=== PATIENT | female | born 1945 | race Caucasian/White ===

== ENCOUNTER 2018-03-13 14:33 | Inpatient (IN) | payer OTHER, MEDICAID ==
[~2018-03-13] VITALS: Ht 160 cm; Wt 77.2 kg
[~2018-03-13 14:33] MED LIST: AMLO5TAB2 PO; CELE200C PO; FAMO20TA7 PO; METO25TA35 PO; OMEP20CA14 PO; QUET100T PO; QUET300T PO; QUET400T PO; SIMV20TA3 PO; TIZA4TAB PO
[2018-03-13] MEDS ORDERED: POTA25TA4 PO (16:31)
[2018-03-13] MEDS ORDERED: ONDANSETRON ODT 4 MG ONE (16:51)
[2018-03-13] MEDS ORDERED: FAMOTIDINE 20 MG/2 ML ONE (16:51)
[2018-03-13 16:57] LABS: MEAN CORPUSCULAR HEMOGLOBIN 28.4 pg (27.0-34.8); MEAN CORPUSCULAR HGB CONC 32.2 g/dL (32.4-35.8); MEAN CORPUSCULAR VOLUME 88.1 fL (80-100); MEAN PLATELET VOLUME 8.5 fL (7.4-10.4); PLATELET COUNT 606 x10^3/uL (130-400); RED BLOOD COUNT 4.15 x10^6/uL (3.82-5.3); RED CELL DISTRIBUTION WIDTH 24.3 % (9.6-15.2)
[2018-03-13] MEDS ORDERED: SODIUM CHLORIDE 0.9% 1,000ML IVBOLUS ONE (17:00)
[2018-03-13] MEDS ORDERED: SODIUM CHLORIDE FLUSH 10ML SYR IVF ONE (17:00)
[2018-03-13] MEDS ORDERED: ONDANSETRON ODT 4 MG PO ONE (17:00)
[2018-03-13] MEDS ORDERED: ONDANSETRON 2MG/ML, 2ML IVPush ONE (17:00)
[2018-03-13] MEDS ORDERED: FAMOTIDINE 20 MG/2 ML IVP ONE (17:00)
[2018-03-13 17:03] LABS: ALANINE AMINOTRANSFERASE 37 U/L (12-78); ANION GAP 8 mmol/L (5-15); CALCIUM 7.4 mg/dL (8.5-10.1); CHLORIDE 113 mmol/L (98-107)
[2018-03-13 17:06] LABS: ALKALINE PHOSPHATASE 194 U/L (45-117); BILIRUBIN,TOTAL 0.6 mg/dL (0.2-1.0); TOTAL PROTEIN 5.8 g/dL (6.4-8.2)
[2018-03-13 17:23] LABS: MD MORPH REVIEW ONLY
[2018-03-13 17:24] LABS: <PLATELET ESTIMATE> INCREASED; <PLT MORPHOLOGY> NORMAL PLT MORPH; ANISOCYTOSIS 1+; OVALOCYTES 1+; POLYCHROMASIA 1+; SCHISTOCYTES 1+
[2018-03-13 17:25] LABS: BASOPHILS # (AUTO) 0.08 x10^3/uL (0-0.1); BASOPHILS % (AUTO) 1 % (0-1); EOSINOPHILS # (AUTO) 0.04 x10^3/uL (0-0.4); EOSINOPHILS % (AUTO) 0 % (1-7); LYMPHOCYTES # (AUTO) 2.98 x10^3/uL (1-3.4); LYMPHOCYTES % (AUTO) 26 % (22-44); MONOCYTES # (AUTO) 0.98 x10^3/uL (0.2-0.8); MONOCYTES % (AUTO) 9 % (2-9); NEUTROPHILS # (AUTO) 7.21 x10^3/uL (1.8-6.8); NEUTROPHILS % (AUTO) 64 % (42-75)
[2018-03-13] MEDS ORDERED: hydrALAzine 20 MG/ML, 1ML IVPush PRN (18:30)
[2018-03-13] MEDS ORDERED: ONDANSETRON ODT 4 MG PO PRN (18:30)
[2018-03-13 18:41] LABS: MICROSCOPIC INDICATED
[2018-03-13 18:44] LABS: CULTURE INDICATED? YES
[2018-03-13] MEDS ORDERED: MAGNESIUM SULFATE PMX 2GM/50ML 50 ML IV ONE (19:30)
[2018-03-13 19:40] VITALS: BP 176/98
[2018-03-13] MEDS: SODIUM CHLORIDE 0.9% 1,000 ML IV SCH (20:53)
[2018-03-13] MEDS: HEPARIN 5,000 UNITS/ML, 1ML SQ SCH (20:54)
[2018-03-13] MEDS: SIMVASTATIN 20 MG TABLET PO SCH (20:54)
[2018-03-13] MEDS ORDERED: QUETIAPINE 100MG TABLET PO SCH (21:00)
[2018-03-13] MEDS ORDERED: QUETIAPINE 100MG TABLET PO ONE (23:00)
[2018-03-14 00:52] VITALS: BP 90/60
[2018-03-14 05:00] LABS: MEAN CORPUSCULAR HEMOGLOBIN 28.7 pg (27.0-34.8); MEAN CORPUSCULAR HGB CONC 32.8 g/dL (32.4-35.8); MEAN CORPUSCULAR VOLUME 87.6 fL (80-100); MEAN PLATELET VOLUME 8.3 fL (7.4-10.4); PLATELET COUNT 432 x10^3/uL (130-400); RED CELL DISTRIBUTION WIDTH 24.1 % (9.6-15.2)
[2018-03-14 05:12] LABS: CHLORIDE 114 mmol/L (98-107)
[2018-03-14] MEDS: HEPARIN 5,000 UNITS/ML, 1ML SQ SCH (05:23)
[2018-03-14 05:24] LABS: ALANINE AMINOTRANSFERASE 23 U/L (12-78); ALBUMIN 1.3 g/dL (3.4-5.0); ALKALINE PHOSPHATASE 123 U/L (45-117); ANION GAP 10 mmol/L (5-15); BILIRUBIN,TOTAL 0.5 mg/dL (0.2-1.0); CALCIUM 6.6 mg/dL (8.5-10.1); CREATININE 0.46 mg/dL (0.55-1.02); TOTAL PROTEIN 3.6 g/dL (6.4-8.2)
[2018-03-14 05:41] LABS: MD YES
[2018-03-14 05:50] LABS: ANISOCYTOSIS 1+; LYMPH#(MANUAL) 3.43 x10^3/uL (1-3.4); LYMPHS% (MANUAL) 49 % (22-44); MONOS#(MANUAL) 0.21 x10^3/uL (0.3-2.7); MONOS% (MANUAL) 3 % (2-9); POLYCHROMASIA 1+; SEG#(MANUAL) 3.36 x10^3/uL (1.8-6.8); SEGS% (MANUAL) 48 % (42-75)
[2018-03-14 05:51] LABS: OVALOCYTES 1+
[2018-03-14 05:52] LABS: <PLATELET ESTIMATE> ADEQUATE; <PLT MORPHOLOGY> NORMAL PLT MORPH; SCHISTOCYTES 1+
[2018-03-14 07:16] VITALS: BP 150/87
[2018-03-14] MEDS ORDERED: POTASSIUM CHLORIDE 40 MEQ in SODIUM CHLORIDE 0.9% 500 ML IV ONE (07:30)
[2018-03-14] MEDS: K-LYTE 25 MEQ TABLET.EFF PO SCH (08:13)
[2018-03-14] MEDS: FAMOTIDINE 20 MG TABLET PO SCH (08:13)
[2018-03-14 09:59] LABS: CLOSTRIDIUM DIFFICILE ANTIGEN NEGATIVE; CLOSTRIDIUM DIFFICILE TOXIN NEGATIVE (Negative)
[2018-03-14 10:18] LABS: OCCULT BLOOD POSITIVE (NEGATIVE)
[2018-03-14] MEDS: PHENAZOPYRIDINE 200 MG TABLET PO PRN (10:58)
[2018-03-14] MEDS: SODIUM CHLORIDE 0.9% 1,000 ML IV SCH ×2 (12:34→22:42)
[2018-03-14 13:01] VITALS: BP 159/98
[2018-03-14] MEDS ORDERED: LOPERAMIDE 2 MG CAPSULE PO ONE (15:30)
[2018-03-14 19:00] VITALS: BP 156/93
[2018-03-14] MEDS ORDERED: QUETIAPINE 200 MG TABLET PO SCH (21:00)
[2018-03-14] MEDS: SIMVASTATIN 20 MG TABLET PO SCH (21:05)
[2018-03-14] MEDS ORDERED: SEROQUEL PO SCH ×2 (21:30)
[2018-03-14] MEDS: LOPERAMIDE 2 MG CAPSULE PO PRN (21:38)
[2018-03-14] MEDS: SEROQUEL PO SCH (21:38)
[2018-03-15 01:39] LABS: MEAN CORPUSCULAR HGB CONC 32.7 g/dL (32.4-35.8); MEAN CORPUSCULAR VOLUME 88.7 fL (80-100); MEAN PLATELET VOLUME 7.9 fL (7.4-10.4); PLATELET COUNT 471 x10^3/uL (130-400); RED BLOOD COUNT 2.81 x10^6/uL (3.82-5.3); RED CELL DISTRIBUTION WIDTH 24.1 % (9.6-15.2)
[2018-03-15 01:48] LABS: ALANINE AMINOTRANSFERASE 23 U/L (12-78); ALBUMIN 1.2 g/dL (3.4-5.0); ANION GAP 8 mmol/L (5-15); CALCIUM 6.5 mg/dL (8.5-10.1); CHLORIDE 118 mmol/L (98-107); CREATININE 0.51 mg/dL (0.55-1.02)
[2018-03-15 01:50] LABS: ALKALINE PHOSPHATASE 126 U/L (45-117); BILIRUBIN,TOTAL 0.4 mg/dL (0.2-1.0); TOTAL PROTEIN 3.7 g/dL (6.4-8.2)
[2018-03-15 02:03] LABS: <PLATELET ESTIMATE> INCREASED; <PLT MORPHOLOGY> NORMAL PLT MORPH; ANISOCYTOSIS 1+; BASOPHILS # (AUTO) 0.02 x10^3/uL (0-0.1); BASOPHILS % (AUTO) 0 % (0-1); EOSINOPHILS # (AUTO) 0.07 x10^3/uL (0-0.4); EOSINOPHILS % (AUTO) 1 % (1-7); LYMPHOCYTES # (AUTO) 2.98 x10^3/uL (1-3.4); LYMPHOCYTES % (AUTO) 40 % (22-44); MD MORPH REVIEW ONLY; MONOCYTES # (AUTO) 0.48 x10^3/uL (0.2-0.8); MONOCYTES % (AUTO) 7 % (2-9); NEUTROPHILS # (AUTO) 3.88 x10^3/uL (1.8-6.8); NEUTROPHILS % (AUTO) 52 % (42-75); OVALOCYTES 1+; POLYCHROMASIA 1+; SCHISTOCYTES 1+
[2018-03-15 02:04] LABS: SMUDGE CELLS 1+
[2018-03-15 03:58] VITALS: BP_SYST 157; BP_SYST 165; BP_DIAS 90; BP_DIAS 96
[2018-03-15 07:05] VITALS: BP 165/84
[2018-03-15] MEDS ORDERED: D5%-0.45NACL+KCL 20MEQ 1,000 ML IV SCH (07:30)
[2018-03-15] MEDS: FAMOTIDINE 20 MG TABLET PO SCH (10:20)
[2018-03-15] MEDS: K-LYTE 25 MEQ TABLET.EFF PO SCH (10:20)
[2018-03-15] MEDS: PHENAZOPYRIDINE 200 MG TABLET PO PRN (10:39)
[2018-03-15] MEDS: LOPERAMIDE 2 MG CAPSULE PO PRN ×2 (10:40→21:30)
[2018-03-15] MEDS: OMEPRAZOLE 20 MG CAPSULE.DR PO SCH (11:49)
[2018-03-15] MEDS: LISINOPRIL 10 MG TABLET PO SCH (11:49)
[2018-03-15 12:20] VITALS: BP 144/89
[2018-03-15] MEDS: FERROUS GLUCONATE 324 MG TABLET PO SCH (17:14)
[2018-03-15 19:01] VITALS: BP 144/91
[2018-03-15] MEDS: SEROQUEL PO SCH (21:00)
[2018-03-15] MEDS: SIMVASTATIN 20 MG TABLET PO SCH (21:30)
[2018-03-15] MEDS: D5%-0.45NACL+KCL 20MEQ 1,000 ML IV SCH (23:02)
[2018-03-16 00:52] VITALS: BP 101/65
[2018-03-16 05:10] LABS: CALCIUM 6.9 mg/dL (8.5-10.1); CHLORIDE 116 mmol/L (98-107)
[2018-03-16 05:14] LABS: ANION GAP 8 mmol/L (5-15); CREATININE 0.51 mg/dL (0.55-1.02)
[2018-03-16 05:15] LABS: MEAN CORPUSCULAR HEMOGLOBIN 29.1 pg (27.0-34.8); MEAN CORPUSCULAR HGB CONC 32.8 g/dL (32.4-35.8); MEAN CORPUSCULAR VOLUME 88.7 fL (80-100); MEAN PLATELET VOLUME 8.6 fL (7.4-10.4); PLATELET COUNT 469 x10^3/uL (130-400); RED BLOOD COUNT 3.02 x10^6/uL (3.82-5.3); RED CELL DISTRIBUTION WIDTH 24.3 % (9.6-15.2)
[2018-03-16 05:58] LABS: BASOPHILS # (AUTO) 0.05 x10^3/uL (0-0.1); BASOPHILS % (AUTO) 0 % (0-1); EOSINOPHILS # (AUTO) 0.09 x10^3/uL (0-0.4); EOSINOPHILS % (AUTO) 1 % (1-7); LYMPHOCYTES # (AUTO) 2.06 x10^3/uL (1-3.4); LYMPHOCYTES % (AUTO) 19 % (22-44); MD SCAN; MONOCYTES % (AUTO) 3 % (2-9); NEUTROPHILS # (AUTO) 8.58 x10^3/uL (1.8-6.8); NEUTROPHILS % (AUTO) 78 % (42-75)
[2018-03-16 07:58] VITALS: BP 105/71
[2018-03-16] MEDS: LISINOPRIL 10 MG TABLET PO SCH (08:00)
[2018-03-16] MEDS: K-LYTE 25 MEQ TABLET.EFF PO SCH (08:00)
[2018-03-16] MEDS: FERROUS GLUCONATE 324 MG TABLET PO SCH ×2 (08:00→15:36)
[2018-03-16] MEDS: OMEPRAZOLE 20 MG CAPSULE.DR PO SCH (08:00)
[2018-03-16] MEDS: FAMOTIDINE 20 MG TABLET PO SCH (08:00)
[2018-03-16 13:30] VITALS: BP 125/84
[2018-03-16] MEDS: LOPERAMIDE 2 MG CAPSULE PO PRN ×2 (15:36→20:31)
[2018-03-16 19:23] VITALS: BP 153/87
[2018-03-16] MEDS: SEROQUEL PO SCH (20:30)
[2018-03-16] MEDS: SIMVASTATIN 20 MG TABLET PO SCH (20:32)
[2018-03-17 01:11] VITALS: BP 115/72
[2018-03-17] MEDS: D5%-0.45NACL+KCL 20MEQ 1,000 ML IV SCH (01:36)
[2018-03-17 04:56] LABS: MEAN CORPUSCULAR HGB CONC 32.6 g/dL (32.4-35.8); MEAN CORPUSCULAR VOLUME 89.1 fL (80-100); MEAN PLATELET VOLUME 8.1 fL (7.4-10.4); PLATELET COUNT 442 x10^3/uL (130-400); RED BLOOD COUNT 2.94 x10^6/uL (3.82-5.3); RED CELL DISTRIBUTION WIDTH 23.7 % (9.6-15.2)
[2018-03-17 04:58] LABS: ANION GAP 6 mmol/L (5-15); CALCIUM 7.1 mg/dL (8.5-10.1); CHLORIDE 116 mmol/L (98-107); CREATININE 0.51 mg/dL (0.55-1.02)
[2018-03-17 05:27] LABS: BASOPHILS # (AUTO) 0.03 x10^3/uL (0-0.1); BASOPHILS % (AUTO) 0 % (0-1); EOSINOPHILS # (AUTO) 0.12 x10^3/uL (0-0.4); EOSINOPHILS % (AUTO) 1 % (1-7); LYMPHOCYTES # (AUTO) 3.18 x10^3/uL (1-3.4); LYMPHOCYTES % (AUTO) 33 % (22-44); MD SCAN; MONOCYTES # (AUTO) 0.66 x10^3/uL (0.2-0.8); MONOCYTES % (AUTO) 7 % (2-9); NEUTROPHILS # (AUTO) 5.71 x10^3/uL (1.8-6.8); NEUTROPHILS % (AUTO) 59 % (42-75)
[2018-03-17 06:55] VITALS: BP 138/85
[2018-03-17] MEDS: LOPERAMIDE 2 MG CAPSULE PO PRN ×2 (08:10→21:30)
[2018-03-17] MEDS: PHENAZOPYRIDINE 200 MG TABLET PO PRN (08:10)
[2018-03-17] MEDS: FAMOTIDINE 20 MG TABLET PO SCH (08:10)
[2018-03-17] MEDS: LACTOBACILLUS CHEW TABLET PO SCH ×3 (08:10→21:30)
[2018-03-17] MEDS: OMEPRAZOLE 20 MG CAPSULE.DR PO SCH (08:11)
[2018-03-17] MEDS: FERROUS GLUCONATE 324 MG TABLET PO SCH ×2 (08:11→16:38)
[2018-03-17] MEDS: LISINOPRIL 10 MG TABLET PO SCH (08:16)
[2018-03-17 09:07] LABS: FOLATE LEVEL 12.6 ng/mL (3.1-17.5)
[2018-03-17] MEDS: ACETAMINOPHEN 325 MG TABLET PO PRN (13:37)
[2018-03-17] MEDS: TIZANIDINE 4MG TABLET PO PRN (13:37)
[2018-03-17 14:07] VITALS: BP 130/84
[2018-03-17] MEDS: CARVEDILOL 3.125 MG TABLET PO SCH (16:38)
[2018-03-17 19:07] VITALS: BP 128/84
[2018-03-17] MEDS: SEROQUEL PO SCH (21:00)
[2018-03-17] MEDS: SIMVASTATIN 20 MG TABLET PO SCH (21:30)
[2018-03-18 01:24] VITALS: BP 127/78
[2018-03-18 05:00] LABS: ANION GAP 5 mmol/L (5-15); CHLORIDE 116 mmol/L (98-107); CREATININE 0.47 mg/dL (0.55-1.02)
[2018-03-18] MEDS: LOPERAMIDE 2 MG CAPSULE PO PRN ×2 (05:27→20:52)
[2018-03-18] MEDS: CARVEDILOL 3.125 MG TABLET PO SCH ×2 (05:28→17:29)
[2018-03-18 06:57] VITALS: BP 138/84
[2018-03-18] MEDS: OMEPRAZOLE 20 MG CAPSULE.DR PO SCH (07:30)
[2018-03-18] MEDS: PHENAZOPYRIDINE 200 MG TABLET PO PRN (08:42)
[2018-03-18] MEDS: LACTOBACILLUS CHEW TABLET PO SCH ×3 (08:42→20:52)
[2018-03-18] MEDS: CALCIUM CARBONATE 500 MG TABLET PO SCH ×2 (08:43→20:52)
[2018-03-18] MEDS: LISINOPRIL 10 MG TABLET PO SCH (08:43)
[2018-03-18] MEDS: ACETAMINOPHEN 325 MG TABLET PO PRN (08:43)
[2018-03-18] MEDS: CHOLECALCIFEROL 1,000 UNIT TABLET PO SCH (08:44)
[2018-03-18] MEDS: FAMOTIDINE 20 MG TABLET PO SCH (08:45)
[2018-03-18] MEDS: FERROUS GLUCONATE 324 MG TABLET PO SCH ×2 (08:45→17:29)
[2018-03-18 15:19] VITALS: BP 145/89
[2018-03-18] MEDS ORDERED: CHOL10003 PO (16:47)
[2018-03-18] MEDS ORDERED: ONDA4TAB13 PO (16:47)
[2018-03-18] MEDS ORDERED: CALC-666 PO (16:47)
[2018-03-18] MEDS ORDERED: ACET325T14 PO (16:47)
[2018-03-18] MEDS ORDERED: ACID1TAB7 PO (16:47)
[2018-03-18] MEDS ORDERED: CARV3.1212 PO (16:47)
[2018-03-18] MEDS ORDERED: SEROQUEL PO (16:47)
[2018-03-18] MEDS ORDERED: PHEN-583 PO (16:47)
[2018-03-18] MEDS ORDERED: LISI-167 PO (16:47)
[2018-03-18] MEDS ORDERED: LOPE2CAP PO (16:47)
[2018-03-18 18:52] VITALS: BP 139/82
[2018-03-18] MEDS: SEROQUEL PO SCH (20:51)
[2018-03-18] MEDS: SIMVASTATIN 20 MG TABLET PO SCH (20:52)
[2018-03-19 02:18] VITALS: BP 108/74
[2018-03-19] MEDS: LOPERAMIDE 2 MG CAPSULE PO PRN ×2 (05:21→10:00)
[2018-03-19] MEDS: CARVEDILOL 3.125 MG TABLET PO SCH ×2 (05:21→17:13)
[2018-03-19 07:22] VITALS: BP 113/77
[2018-03-19] MEDS: FAMOTIDINE 20 MG TABLET PO SCH (09:00)
[2018-03-19] MEDS: CHOLECALCIFEROL 1,000 UNIT TABLET PO SCH (09:00)
[2018-03-19] MEDS: OMEPRAZOLE 20 MG CAPSULE.DR PO SCH (09:59)
[2018-03-19] MEDS: FERROUS GLUCONATE 324 MG TABLET PO SCH ×2 (09:59→17:13)
[2018-03-19] MEDS: LISINOPRIL 10 MG TABLET PO SCH (10:00)
[2018-03-19] MEDS: LACTOBACILLUS CHEW TABLET PO SCH ×3 (10:01→21:58)
[2018-03-19] MEDS: CALCIUM CARBONATE 500 MG TABLET PO SCH ×2 (10:01→21:58)
[2018-03-19] MEDS: ACETAMINOPHEN 325 MG TABLET PO PRN ×2 (10:01→17:13)
[2018-03-19] MEDS: ENOXAPARIN 40 MG/0.4 ML SQ SCH (11:53)
[2018-03-19 13:45] VITALS: BP 136/79
[2018-03-19] MEDS ORDERED: OMNIPAQUE 350 MG/ML, 100ML BOTTLE ONE (15:17)
[2018-03-19] MEDS: OCTREOTIDE 100MCG/ML, 1ML (0.1MG/ML) SQ SCH ×2 (18:12→22:50)
[2018-03-19 18:13] LABS: CRYPTOSPORIDIUM ANTIGEN Negative (Negative)
[2018-03-19 20:26] VITALS: BP_SYST 82; BP_SYST 85; BP_DIAS 56
[2018-03-19] MEDS ORDERED: SODIUM CHLORIDE 0.9% 1,000ML IVBOLUS ONE (21:00)
[2018-03-19 21:53] VITALS: BP 93/66
[2018-03-19 21:57] VITALS: BP 89/59
[2018-03-19] MEDS: SIMVASTATIN 20 MG TABLET PO SCH (21:58)
[2018-03-19] MEDS: SODIUM CHLORIDE 0.9% 1,000 ML IV SCH (22:41)
[2018-03-19] MEDS: SEROQUEL PO SCH (22:50)
[2018-03-20] VITALS (8 sets, daily range): BP systolic 56–154; BP diastolic 38–88
[2018-03-20] MEDS: ALBUMIN HUMAN 25% 100 ML IV SCH ×4 (02:46→21:35)
[2018-03-20] MEDS ORDERED: SODIUM CHLORIDE 0.9%, 500ML IVBOLUS ONE (03:00)
[2018-03-20] MEDS: CARVEDILOL 3.125 MG TABLET PO SCH ×2 (05:40→17:58)
[2018-03-20] MEDS: FERROUS GLUCONATE 324 MG TABLET PO SCH ×2 (08:00→16:43)
[2018-03-20] MEDS: OMEPRAZOLE 20 MG CAPSULE.DR PO SCH (08:07)
[2018-03-20] MEDS: ACETAMINOPHEN 325 MG TABLET PO PRN ×2 (08:07→19:55)
[2018-03-20] MEDS: FAMOTIDINE 20 MG TABLET PO SCH (08:07)
[2018-03-20] MEDS: LOPERAMIDE 2 MG CAPSULE PO PRN (08:07)
[2018-03-20] MEDS: LACTOBACILLUS CHEW TABLET PO SCH ×3 (08:07→21:36)
[2018-03-20] MEDS: CALCIUM CARBONATE 500 MG TABLET PO SCH ×2 (08:09→21:36)
[2018-03-20] MEDS: CHOLECALCIFEROL 1,000 UNIT TABLET PO SCH (08:09)
[2018-03-20] MEDS: LISINOPRIL 10 MG TABLET PO SCH (08:09)
[2018-03-20 11:06] LABS: MICROSCOPIC INDICATED
[2018-03-20] MEDS: ENOXAPARIN 40 MG/0.4 ML SQ SCH (11:12)
[2018-03-20] MEDS: SODIUM CHLORIDE 0.9% 1,000 ML IV SCH (11:12)
[2018-03-20] MEDS: OCTREOTIDE 100MCG/ML, 1ML (0.1MG/ML) SQ SCH ×3 (12:33→21:47)
[2018-03-20] MEDS ORDERED: OMNIPAQUE 350 MG/ML, 75ML BOTTLE ONE (13:52)
[2018-03-20] MEDS: TIZANIDINE 4MG TABLET PO PRN (19:55)
[2018-03-20] MEDS: SEROQUEL PO SCH (21:00)
[2018-03-20] MEDS: SIMVASTATIN 20 MG TABLET PO SCH (21:36)
[2018-03-21 02:53] VITALS: BP 119/78
[2018-03-21] MEDS: SODIUM CHLORIDE 0.9% 1,000 ML IV SCH (03:03)
[2018-03-21 05:16] VITALS: BP 126/74
[2018-03-21] MEDS: ACETAMINOPHEN 325 MG TABLET PO PRN ×2 (05:19→19:41)
[2018-03-21] MEDS: CARVEDILOL 3.125 MG TABLET PO SCH ×2 (05:19→17:10)
[2018-03-21 07:04] VITALS: BP 112/71
[2018-03-21] MEDS: OMEPRAZOLE 20 MG CAPSULE.DR PO SCH (08:00)
[2018-03-21] MEDS: FERROUS GLUCONATE 324 MG TABLET PO SCH ×2 (08:00→17:09)
[2018-03-21] MEDS: LACTOBACILLUS CHEW TABLET PO SCH ×3 (08:00→21:22)
[2018-03-21] MEDS: LISINOPRIL 10 MG TABLET PO SCH (09:04)
[2018-03-21] MEDS: CHOLECALCIFEROL 1,000 UNIT TABLET PO SCH (09:04)
[2018-03-21] MEDS: FAMOTIDINE 20 MG TABLET PO SCH (09:04)
[2018-03-21] MEDS: CALCIUM CARBONATE 500 MG TABLET PO SCH ×2 (09:04→21:22)
[2018-03-21] MEDS: OCTREOTIDE 100MCG/ML, 1ML (0.1MG/ML) SQ SCH ×3 (10:00→21:23)
[2018-03-21] MEDS: ENOXAPARIN 40 MG/0.4 ML SQ SCH (11:30)
[2018-03-21 12:30] VITALS: BP 152/83
[2018-03-21] MEDS ORDERED: SODIUM CHLORIDE 0.9% 1,000 ML IV SCH ×2 (19:00→22:30)
[2018-03-21 19:09] VITALS: BP 167/96
[2018-03-21] MEDS: TIZANIDINE 4MG TABLET PO PRN (19:41)
[2018-03-21] MEDS: SEROQUEL PO SCH (21:00)
[2018-03-21] MEDS: SIMVASTATIN 20 MG TABLET PO SCH (21:23)
[2018-03-21] MEDS: GUAIFENESIN 100 MG/5 ML, 10ML UDC PO PRN (21:33)
[2018-03-22] VITALS (7 sets, daily range): BP systolic 105–155; BP diastolic 66–90
[2018-03-22] MEDS: CARVEDILOL 3.125 MG TABLET PO SCH (05:14)
[2018-03-22] MEDS ORDERED: FUROSEMIDE 20 MG/2 ML IV ONE (06:30)
[2018-03-22] MEDS ORDERED: FUROSEMIDE 20 MG/2 ML ONE (06:36)
[2018-03-22] MEDS ORDERED: LIDOCAINE-MPF 1%, 5ML ONE (07:35)
[2018-03-22] MEDS: FAMOTIDINE 20 MG TABLET PO SCH (08:21)
[2018-03-22] MEDS: LACTOBACILLUS CHEW TABLET PO SCH ×3 (08:21→20:57)
[2018-03-22] MEDS: LISINOPRIL 10 MG TABLET PO SCH (08:21)
[2018-03-22] MEDS: FERROUS GLUCONATE 324 MG TABLET PO SCH ×2 (08:21→17:07)
[2018-03-22] MEDS: CALCIUM CARBONATE 500 MG TABLET PO SCH ×2 (08:22→20:57)
[2018-03-22] MEDS: OMEPRAZOLE 20 MG CAPSULE.DR PO SCH (08:22)
[2018-03-22] MEDS: CHOLECALCIFEROL 1,000 UNIT TABLET PO SCH (08:22)
[2018-03-22] MEDS: OCTREOTIDE 100MCG/ML, 1ML (0.1MG/ML) SQ SCH ×3 (08:59→20:57)
[2018-03-22 10:03] LABS: INTERNATIONAL NORMALIZED RATIO 1.23 (0.93-1.1); PROTHROMBIN TIME 12.6 Seconds (9.6-11.5)
[2018-03-22] MEDS: ENOXAPARIN 40 MG/0.4 ML SQ SCH (11:00)
[2018-03-22] MEDS ORDERED: LIDOCAINE 2%, 10ML ONE (11:14)
[2018-03-22] MEDS ORDERED: FLUMAZENIL 0.1 MG/1 ML, 5ML ONE (11:34)
[2018-03-22] MEDS ORDERED: MIDAZOLAM 1 MG/ML, 5ML ONE (11:34)
[2018-03-22] MEDS ORDERED: NALOXONE 1 MG/ML, 2ML ONE (11:34)
[2018-03-22] MEDS ORDERED: FENTANYL PF 100 MCG/2ML ONE ×2 (11:34)
[2018-03-22] MEDS: LOPERAMIDE 2 MG CAPSULE PO PRN (17:07)
[2018-03-22] MEDS: CARVEDILOL 6.25 MG TABLET PO SCH (18:35)
[2018-03-22] MEDS: SIMVASTATIN 20 MG TABLET PO SCH (20:57)
[2018-03-22] MEDS: SEROQUEL PO SCH (21:00)
[2018-03-23 02:00] VITALS: BP 133/82
[2018-03-23] MEDS: CARVEDILOL 6.25 MG TABLET PO SCH ×2 (05:26→17:15)
[2018-03-23 06:58] VITALS: BP 122/79
[2018-03-23] MEDS: CALCIUM CARBONATE 500 MG TABLET PO SCH ×2 (07:55→21:51)
[2018-03-23] MEDS: FAMOTIDINE 20 MG TABLET PO SCH (07:56)
[2018-03-23] MEDS: OMEPRAZOLE 20 MG CAPSULE.DR PO SCH (07:56)
[2018-03-23] MEDS: CHOLECALCIFEROL 1,000 UNIT TABLET PO SCH (07:56)
[2018-03-23] MEDS: FERROUS GLUCONATE 324 MG TABLET PO SCH ×2 (07:56→17:12)
[2018-03-23] MEDS: LISINOPRIL 10 MG TABLET PO SCH (07:56)
[2018-03-23] MEDS: LACTOBACILLUS CHEW TABLET PO SCH ×3 (07:56→21:51)
[2018-03-23] MEDS: OCTREOTIDE 100MCG/ML, 1ML (0.1MG/ML) SQ SCH ×3 (08:09→21:53)
[2018-03-23 08:55] LABS: ABSOLUTE RETICS # 0.086 x10^6/uL (0.5-2.5); RED BLOOD COUNT 3.18 x10^6/uL (3.82-5.3); RETICULOCYTE COUNT % 2.7 % (0.5-1.5)
[2018-03-23 09:00] LABS: THYROID STIMULATING HORMONE 1.55 mIU/L (0.358-3.740)
[2018-03-23] MEDS: LOPERAMIDE 2 MG CAPSULE PO PRN (09:20)
[2018-03-23] MEDS: ENOXAPARIN 40 MG/0.4 ML SQ SCH (10:49)
[2018-03-23 12:56] VITALS: BP 139/85
[2018-03-23 17:15] VITALS: BP 151/93
[2018-03-23 19:47] VITALS: BP 157/91
[2018-03-23] MEDS: SEROQUEL PO SCH ×2 (21:00→21:50)
[2018-03-23] MEDS: SIMVASTATIN 20 MG TABLET PO SCH (21:51)
[2018-03-23] MEDS: GUAIFENESIN 100 MG/5 ML, 10ML UDC PO PRN (22:08)
[2018-03-24 02:00] VITALS: BP 137/82
[2018-03-24] MEDS: CARVEDILOL 6.25 MG TABLET PO SCH ×2 (05:11→17:12)
[2018-03-24 05:44] LABS: MEAN CORPUSCULAR HEMOGLOBIN 29.4 pg (27.0-34.8); MEAN CORPUSCULAR HGB CONC 31.8 g/dL (32.4-35.8); MEAN CORPUSCULAR VOLUME 92.6 fL (80-100); MEAN PLATELET VOLUME 8.4 fL (7.4-10.4); PLATELET COUNT 341 x10^3/uL (130-400); RED BLOOD COUNT 2.83 x10^6/uL (3.82-5.3); RED CELL DISTRIBUTION WIDTH 24.3 % (9.6-15.2)
[2018-03-24 05:52] LABS: ANION GAP 8 mmol/L (5-15); CALCIUM 6.5 mg/dL (8.5-10.1); CHLORIDE 110 mmol/L (98-107)
[2018-03-24 06:01] LABS: MD YES
[2018-03-24 06:07] LABS: ANISOCYTOSIS 1+; BANDS%(MANUAL) 11 % (0-7); LYMPH#(MANUAL) 1.55 x10^3/uL (1-3.4); LYMPHS% (MANUAL) 17 % (22-44); MONOS#(MANUAL) 0.18 x10^3/uL (0.3-2.7); MONOS% (MANUAL) 2 % (2-9); OVALOCYTES 1+; POLYCHROMASIA 1+; SEG#(MANUAL) 6.37 x10^3/uL (1.8-6.8); SEGS% (MANUAL) 70 % (42-75)
[2018-03-24 06:08] LABS: <PLATELET ESTIMATE> ADEQUATE; <PLT MORPHOLOGY> NORMAL PLT MORPH
[2018-03-24 06:47] VITALS: BP 124/81
[2018-03-24] MEDS: POTASSIUM CHLORIDE 20 MEQ TAB.ER.PRT PO SCH ×3 (08:00→17:12)
[2018-03-24] MEDS: OMEPRAZOLE 20 MG CAPSULE.DR PO SCH (08:04)
[2018-03-24] MEDS: FERROUS GLUCONATE 324 MG TABLET PO SCH ×2 (08:04→17:12)
[2018-03-24] MEDS: LACTOBACILLUS CHEW TABLET PO SCH ×3 (08:04→21:06)
[2018-03-24] MEDS: LISINOPRIL 10 MG TABLET PO SCH (08:05)
[2018-03-24] MEDS: CALCIUM CARBONATE 500 MG TABLET PO SCH ×2 (08:05→21:06)
[2018-03-24] MEDS: CHOLECALCIFEROL 1,000 UNIT TABLET PO SCH (08:05)
[2018-03-24] MEDS: FAMOTIDINE 20 MG TABLET PO SCH (08:05)
[2018-03-24] MEDS: FUROSEMIDE 20 MG TABLET PO SCH (08:06)
[2018-03-24] MEDS: OCTREOTIDE 100MCG/ML, 1ML (0.1MG/ML) SQ SCH ×3 (08:07→21:06)
[2018-03-24] MEDS: ACETAMINOPHEN 325 MG TABLET PO PRN (08:14)
[2018-03-24] MEDS: GUAIFENESIN 100 MG/5 ML, 10ML UDC PO PRN ×2 (08:14→19:26)
[2018-03-24] MEDS: ENOXAPARIN 40 MG/0.4 ML SQ SCH (10:56)
[2018-03-24 12:55] VITALS: BP 143/86
[2018-03-24] MEDS: LOPERAMIDE 2 MG CAPSULE PO PRN ×2 (14:08→19:26)
[2018-03-24 20:00] VITALS: BP 142/85
[2018-03-24] MEDS: SEROQUEL PO SCH (21:00)
[2018-03-24] MEDS: SIMVASTATIN 20 MG TABLET PO SCH (21:06)
[2018-03-25 02:00] VITALS: BP 117/75
[2018-03-25] MEDS: CARVEDILOL 6.25 MG TABLET PO SCH (05:22)
[2018-03-25] MEDS: GUAIFENESIN 100 MG/5 ML, 10ML UDC PO PRN ×2 (05:22→17:30)
[2018-03-25 05:32] LABS: ALBUMIN 1.6 g/dL (3.4-5.0); ANION GAP 9 mmol/L (5-15); CALCIUM 6.8 mg/dL (8.5-10.1); CHLORIDE 109 mmol/L (98-107); CREATININE 0.38 mg/dL (0.55-1.02)
[2018-03-25 05:41] LABS: MEAN CORPUSCULAR HEMOGLOBIN 29.5 pg (27.0-34.8); MEAN CORPUSCULAR HGB CONC 32.7 g/dL (32.4-35.8); MEAN CORPUSCULAR VOLUME 90.2 fL (80-100); PLATELET COUNT 357 x10^3/uL (130-400); RED BLOOD COUNT 2.84 x10^6/uL (3.82-5.3); RED CELL DISTRIBUTION WIDTH 24.5 % (9.6-15.2)
[2018-03-25 06:02] LABS: MD YES
[2018-03-25 06:05] LABS: BAND#(MANUAL) 1.38 x10^3/uL; BANDS%(MANUAL) 17 % (0-7); LYMPHS% (MANUAL) 21 % (22-44); MONOS#(MANUAL) 0.16 x10^3/uL (0.3-2.7); MONOS% (MANUAL) 2 % (2-9); SEG#(MANUAL) 4.86 x10^3/uL (1.8-6.8); SEGS% (MANUAL) 60 % (42-75)
[2018-03-25 06:06] LABS: ANISOCYTOSIS 1+; HYPOCHROMIA 1+
[2018-03-25 06:07] LABS: OVALOCYTES 1+
[2018-03-25 06:09] LABS: <PLATELET ESTIMATE> ADEQUATE; <PLT MORPHOLOGY> NORMAL PLT MORPH
[2018-03-25 07:01] VITALS: BP 120/76
[2018-03-25] MEDS: POTASSIUM CHLORIDE 20 MEQ TAB.ER.PRT PO SCH ×3 (08:48→17:47)
[2018-03-25] MEDS: OMEPRAZOLE 20 MG CAPSULE.DR PO SCH (09:05)
[2018-03-25] MEDS: CHOLECALCIFEROL 1,000 UNIT TABLET PO SCH (09:06)
[2018-03-25] MEDS: LACTOBACILLUS CHEW TABLET PO SCH ×2 (09:07→17:46)
[2018-03-25] MEDS: FAMOTIDINE 20 MG TABLET PO SCH (09:07)
[2018-03-25] MEDS: CALCIUM CARBONATE 500 MG TABLET PO SCH (09:07)
[2018-03-25] MEDS: FUROSEMIDE 20 MG TABLET PO SCH (09:07)
[2018-03-25] MEDS: LISINOPRIL 10 MG TABLET PO SCH (09:08)
[2018-03-25] MEDS: FERROUS GLUCONATE 324 MG TABLET PO SCH ×2 (09:09→17:46)
[2018-03-25] MEDS: OCTREOTIDE 100MCG/ML, 1ML (0.1MG/ML) SQ SCH ×2 (09:31→17:46)
[2018-03-25] MEDS ORDERED: FERR325T16 PO (12:26)
[2018-03-25] MEDS ORDERED: FURO20TA3 PO (12:26)
[2018-03-25] MEDS: ENOXAPARIN 40 MG/0.4 ML SQ SCH (13:20)
[2018-03-25 13:21] VITALS: BP 131/87
== END 2018-03-25 17:49 | DRG 843 ==
LOC: ED 17:47 → EDIP 18:11 → 3NE 19:18 → 4WST 03-20 09:30
PROVIDERS: ADMIT Hospitalist; ATTEND Hospitalist
PROC: 0T9B70Z Drainage of Bladder with Drainage Device, Via Natural or Artificial Opening (ICD-10-PCS; principal; 2018-03-20)
PROC: 0FB03ZX Excision of Liver, Percutaneous Approach, Diagnostic (ICD-10-PCS; 2018-03-22)
DX: C7A.8 Other malignant neuroendocrine tumors (principal); E43 Unspecified severe protein-calorie malnutrition; J96.01 Acute respiratory failure with hypoxia; I50.23 Acute on chronic systolic (congestive) heart failure; C78.7 Secondary malignant neoplasm of liver and intrahepatic bile duct; E34.0 Carcinoid syndrome; E87.0 Hyperosmolality and hypernatremia; E87.2 Acidosis; I95.9 Hypotension, unspecified; E83.42 Hypomagnesemia; I42.9 Cardiomyopathy, unspecified; N39.0 Urinary tract infection, site not specified; I11.0 Hypertensive heart disease with heart failure; E86.0 Dehydration; E87.6 Hypokalemia; G89.29 Other chronic pain; M54.9 Dorsalgia, unspecified; K63.5 Polyp of colon; Z66 Do not resuscitate; Z96.641 Presence of right artificial hip joint; M19.90 Unspecified osteoarthritis, unspecified site; R79.89 Other specified abnormal findings of blood chemistry; D64.9 Anemia, unspecified; R00.0 Tachycardia, unspecified; R30.0 Dysuria; Z81.8 Family history of other mental and behavioral disorders; Z82.5 Family history of asthma and other chronic lower respiratory diseases; Z86.19 Personal history of other infectious and parasitic diseases; Z87.440 Personal history of urinary (tract) infections; Z87.891 Personal history of nicotine dependence; Z90.710 Acquired absence of both cervix and uterus; Z68.30 Body mass index [BMI] 30.0-30.9, adult; Z90.49 Acquired absence of other specified parts of digestive tract; Z88.0 Allergy status to penicillin; Z88.5 Allergy status to narcotic agent
CPT/HCPCS: 36415; 36600; 47000; 71045; 71260; 74021; 74177; 76942; 80048; 80053; 81001; 82040; 82103; 82272; 82330; 82607; 82656; 82705; 82728; 82746; 82784; 82803; 82941; 82943; 83497; 83516; 83525; 83540; 83550; 83615; 83690; 83735; 83930; 83986; 83993; 84145; 84307; 84443; 84466; 84586; 85025; 85045; 85610; 86255; 86316; 87015; 87046; 87086; 87206; 87324; 87328; 87329; 87427; 88307; 89055; 93005; 93306; 96374; 99156; 99157; J1644; J1650; J2250; J2354; J3010; J3480; J3490; P9047; Q0162; Q9967; J1940; J2310; J3475; J7030; J7040; S0028

== ENCOUNTER 2018-04-08 11:06 | Inpatient (IN) | payer OTHER, MEDICAID ==
[~2018-04-08] VITALS: Ht 160 cm; Wt 69.6 kg
[~2018-04-08 11:06] MED LIST changes: +ACET325T14 PO; +ACID1TAB7 PO; +CALC-666 PO; +CARV3.1212 PO; +CHOL10003 PO; +FERR325T16 PO; +FURO20TA3 PO; +LISI-167 PO; +LOPE2CAP PO; +ONDA4TAB13 PO; +PHEN-583 PO; +POTA25TA4 PO; +SEROQUEL PO
[2018-04-08] MEDS ORDERED: SODIUM CHLORIDE 0.9% 1,000ML IVBOLUS ONE ×2 (11:30→13:30)
[2018-04-08] MEDS ORDERED: SODIUM CHLORIDE FLUSH 10ML SYR IVF ONE (11:30)
[2018-04-08 12:11] LABS: BASOPHILS # (AUTO) 0.04 x10^3/uL (0-0.1); BASOPHILS % (AUTO) 0 % (0-1); EOSINOPHILS # (AUTO) 0.01 x10^3/uL (0-0.4); EOSINOPHILS % (AUTO) 0 % (1-7); LYMPHOCYTES # (AUTO) 2.37 x10^3/uL (1-3.4); LYMPHOCYTES % (AUTO) 21 % (22-44); MD NO; MEAN CORPUSCULAR HEMOGLOBIN 29.6 pg (27.0-34.8); MEAN CORPUSCULAR VOLUME 89.9 fL (80-100); MEAN PLATELET VOLUME 9.3 fL (7.4-10.4); MONOCYTES # (AUTO) 0.57 x10^3/uL (0.2-0.8); MONOCYTES % (AUTO) 5 % (2-9); NEUTROPHILS # (AUTO) 8.38 x10^3/uL (1.8-6.8); NEUTROPHILS % (AUTO) 74 % (42-75); PLATELET COUNT 438 x10^3/uL (130-400); RED BLOOD COUNT 3.39 x10^6/uL (3.82-5.3)
[2018-04-08 12:14] LABS: ALANINE AMINOTRANSFERASE 25 U/L (12-78); ALBUMIN 1.5 g/dL (3.4-5.0); ANION GAP 7 mmol/L (5-15); CHLORIDE 111 mmol/L (98-107); CREATININE 0.56 mg/dL (0.55-1.02)
[2018-04-08 12:17] LABS: INTERNATIONAL NORMALIZED RATIO 1.32 (0.93-1.1); PROTHROMBIN TIME 13.7 Seconds (9.6-11.5)
[2018-04-08 12:18] LABS: ALKALINE PHOSPHATASE 216 U/L (45-117); BILIRUBIN,TOTAL 0.5 mg/dL (0.2-1.0); TOTAL PROTEIN 4.3 g/dL (6.4-8.2); TROPONIN I 0.016 ng/mL (0.000-0.045)
[2018-04-08] MEDS ORDERED: POTASSIUM CHLORIDE 20 MEQ TAB.ER.PRT PO ONE (13:00)
[2018-04-08] MEDS ORDERED: POTASSIUM CHLORIDE 40 MEQ in SODIUM CHLORIDE 0.9% 500 ML IV ONE (13:00)
[2018-04-08] MEDS ORDERED: POTASSIUM CHLORIDE 20 MEQ TAB.ER.PRT ONE (13:15)
[2018-04-08] MEDS ORDERED: CHOL239. PO (14:15)
[2018-04-08] MEDS ORDERED: ALBU1.25 NEB (14:15)
[2018-04-08] MEDS ORDERED: DRON2.5C PO (14:15)
[2018-04-08] MEDS ORDERED: OCTR50AM IM (14:16)
[2018-04-08] MEDS ORDERED: BISACODYL 10 MG SUPP PR PRN (15:00)
[2018-04-08] MEDS ORDERED: PHENAZOPYRIDINE 200 MG TABLET PO PRN (15:00)
[2018-04-08] MEDS ORDERED: ALBUTEROL SULFATE 2.5 MG/3 ML NEB PRN (15:00)
[2018-04-08] MEDS ORDERED: ONDANSETRON 2MG/ML, 2ML IVPush PRN (15:00)
[2018-04-08] MEDS ORDERED: DOCUSATE 100 MG CAPSULE PO PRN (15:00)
[2018-04-08] MEDS ORDERED: POLYETHYLENE GLYCOL 17 GM PACKET PO PRN (15:00)
[2018-04-08] MEDS ORDERED: ACETAMINOPHEN 325 MG TABLET PO PRN (15:00)
[2018-04-08] MEDS ORDERED: ENALAPRILAT 1.25 MG/ML, 2ML IVPush PRN (15:00)
[2018-04-08] MEDS ORDERED: LOPERAMIDE 2 MG CAPSULE PO PRN (15:30)
[2018-04-08 16:55] VITALS: BP 117/79
[2018-04-08] MEDS: FERROUS GLUCONATE 324 MG TABLET PO SCH (17:31)
[2018-04-08] MEDS: LACTOBACILLUS CHEW TABLET PO SCH ×2 (17:31→20:58)
[2018-04-08] MEDS ORDERED: MAGNESIUM SULFATE PMX 2GM/50ML 50 ML IV ONE (18:00)
[2018-04-08 18:57] VITALS: BP 113/80
[2018-04-08 19:00] VITALS: BP 119/82
[2018-04-08] MEDS: CALCIUM CARBONATE 500 MG TABLET PO SCH (20:57)
[2018-04-08] MEDS: DRONABINOL 2.5 MG CAPSULE PO SCH (20:58)
[2018-04-08] MEDS: QUETIAPINE 200 MG TABLET PO SCH (22:29)
[2018-04-08] MEDS: SIMVASTATIN 20 MG TABLET PO SCH (22:29)
[2018-04-08] MEDS ORDERED: ONDANSETRON ODT 4 MG ONE (22:36)
[2018-04-09] VITALS (9 sets, daily range): BP systolic 73–114; BP diastolic 50–79
[2018-04-09] MEDS: CHOLESTYRAMINE LIGHT 4GM PACKET PO SCH ×3 (01:03→22:24)
[2018-04-09 05:35] LABS: BASOPHILS # (AUTO) 0.07 x10^3/uL (0-0.1); BASOPHILS % (AUTO) 1 % (0-1); EOSINOPHILS # (AUTO) 0.01 x10^3/uL (0-0.4); EOSINOPHILS % (AUTO) 0 % (1-7); LYMPHOCYTES # (AUTO) 2.26 x10^3/uL (1-3.4); LYMPHOCYTES % (AUTO) 21 % (22-44); MD NO; MEAN CORPUSCULAR HGB CONC 33.4 g/dL (32.4-35.8); MEAN CORPUSCULAR VOLUME 89.9 fL (80-100); MEAN PLATELET VOLUME 9.9 fL (7.4-10.4); MONOCYTES # (AUTO) 0.58 x10^3/uL (0.2-0.8); MONOCYTES % (AUTO) 6 % (2-9); NEUTROPHILS # (AUTO) 7.64 x10^3/uL (1.8-6.8); NEUTROPHILS % (AUTO) 72 % (42-75); PLATELET COUNT 305 x10^3/uL (130-400); RED BLOOD COUNT 2.81 x10^6/uL (3.82-5.3); RED CELL DISTRIBUTION WIDTH 21.6 % (9.6-15.2)
[2018-04-09 05:42] LABS: ALBUMIN 1.2 g/dL (3.4-5.0); ANION GAP 7 mmol/L (5-15); CALCIUM 6.8 mg/dL (8.5-10.1); CHLORIDE 110 mmol/L (98-107)
[2018-04-09 05:47] LABS: ALANINE AMINOTRANSFERASE 20 U/L (12-78); ALKALINE PHOSPHATASE 170 U/L (45-117); BILIRUBIN,TOTAL 0.4 mg/dL (0.2-1.0); CREATININE 0.47 mg/dL (0.55-1.02); TOTAL PROTEIN 3.6 g/dL (6.4-8.2)
[2018-04-09] MEDS: DRONABINOL 2.5 MG CAPSULE PO SCH ×2 (09:30→20:31)
[2018-04-09] MEDS: CALCIUM CARBONATE 500 MG TABLET PO SCH ×2 (09:30→20:31)
[2018-04-09] MEDS: FERROUS GLUCONATE 324 MG TABLET PO SCH ×2 (09:30→16:50)
[2018-04-09] MEDS: FAMOTIDINE 20 MG TABLET PO SCH (09:30)
[2018-04-09] MEDS: LACTOBACILLUS CHEW TABLET PO SCH ×3 (09:30→20:31)
[2018-04-09] MEDS: CHOLECALCIFEROL 1,000 UNIT TABLET PO SCH (09:30)
[2018-04-09] MEDS ORDERED: SODIUM CHLORIDE 0.9% 1,000 ML IV SCH (14:30)
[2018-04-09] MEDS ORDERED: NS + 20MEQ KCL 1,000 ML IV SCH (14:30)
[2018-04-09] MEDS ORDERED: ALBUTEROL SULFATE 2.5 MG/3 ML NPPB PRN (15:00)
[2018-04-09] MEDS: GUAIFENESIN 200 MG TABLET PO SCH ×2 (16:50→20:31)
[2018-04-09] MEDS: QUETIAPINE 200 MG TABLET PO SCH (20:31)
[2018-04-09] MEDS: SIMVASTATIN 20 MG TABLET PO SCH (20:31)
[2018-04-09] MEDS ORDERED: QUETIAPINE 200 MG TABLET PO SCH (21:00)
[2018-04-10 01:21] VITALS: BP 86/57
[2018-04-10 01:31] VITALS: BP 90/64
[2018-04-10] MEDS: GUAIFENESIN 200 MG TABLET PO SCH ×4 (06:00→20:13)
[2018-04-10 06:07] LABS: BASOPHILS # (AUTO) 0.03 x10^3/uL (0-0.1); BASOPHILS % (AUTO) 0 % (0-1); EOSINOPHILS # (AUTO) 0.02 x10^3/uL (0-0.4); EOSINOPHILS % (AUTO) 0 % (1-7); LYMPHOCYTES # (AUTO) 2.49 x10^3/uL (1-3.4); LYMPHOCYTES % (AUTO) 35 % (22-44); MD NO; MEAN CORPUSCULAR HEMOGLOBIN 29.4 pg (27.0-34.8); MEAN CORPUSCULAR HGB CONC 32.4 g/dL (32.4-35.8); MEAN CORPUSCULAR VOLUME 90.9 fL (80-100); MEAN PLATELET VOLUME 9.6 fL (7.4-10.4); MONOCYTES % (AUTO) 8 % (2-9); NEUTROPHILS # (AUTO) 3.99 x10^3/uL (1.8-6.8); NEUTROPHILS % (AUTO) 56 % (42-75); PLATELET COUNT 286 x10^3/uL (130-400); RED BLOOD COUNT 2.93 x10^6/uL (3.82-5.3)
[2018-04-10 06:11] LABS: ALBUMIN 1.3 g/dL (3.4-5.0); ANION GAP 6 mmol/L (5-15); CALCIUM 6.3 mg/dL (8.5-10.1); CHLORIDE 111 mmol/L (98-107)
[2018-04-10 06:15] LABS: ALANINE AMINOTRANSFERASE 20 U/L (12-78); ALKALINE PHOSPHATASE 214 U/L (45-117); BILIRUBIN,TOTAL 0.6 mg/dL (0.2-1.0); CREATININE 0.46 mg/dL (0.55-1.02); TOTAL PROTEIN 3.8 g/dL (6.4-8.2)
[2018-04-10 10:00] LABS: CULTURE INDICATED? YES; MICROSCOPIC INDICATED
[2018-04-10 10:02] VITALS: BP 118/74
[2018-04-10] MEDS: LACTOBACILLUS CHEW TABLET PO SCH ×3 (10:09→20:13)
[2018-04-10] MEDS: FAMOTIDINE 20 MG TABLET PO SCH (10:09)
[2018-04-10] MEDS: FERROUS GLUCONATE 324 MG TABLET PO SCH ×2 (10:10→17:01)
[2018-04-10] MEDS: CHOLECALCIFEROL 1,000 UNIT TABLET PO SCH (10:10)
[2018-04-10] MEDS: CHOLESTYRAMINE LIGHT 4GM PACKET PO SCH ×2 (10:10→22:07)
[2018-04-10] MEDS: CALCIUM CARBONATE 500 MG TABLET PO SCH ×2 (10:10→20:14)
[2018-04-10] MEDS: DRONABINOL 2.5 MG CAPSULE PO SCH ×2 (10:11→20:14)
[2018-04-10 10:48] LABS: OCCULT BLOOD POSITIVE (NEGATIVE)
[2018-04-10 12:23] LABS: CLOSTRIDIUM DIFFICILE ANTIGEN NEGATIVE; CLOSTRIDIUM DIFFICILE TOXIN NEGATIVE (Negative)
[2018-04-10 14:00] VITALS: BP 132/90
[2018-04-10] MEDS: HEPARIN 5,000 UNITS/ML, 1ML SQ SCH ×2 (17:01→22:10)
[2018-04-10] MEDS: SIMVASTATIN 20 MG TABLET PO SCH (20:14)
[2018-04-10 20:20] VITALS: BP 131/86
[2018-04-10] MEDS: QUETIAPINE 200 MG TABLET PO SCH (22:08)
[2018-04-11 00:51] VITALS: BP 94/67
[2018-04-11 05:52] LABS: ALBUMIN 1.3 g/dL (3.4-5.0); ANION GAP 5 mmol/L (5-15); CALCIUM 6.4 mg/dL (8.5-10.1); CHLORIDE 110 mmol/L (98-107)
[2018-04-11 05:57] LABS: ALANINE AMINOTRANSFERASE 20 U/L (12-78); ALKALINE PHOSPHATASE 197 U/L (45-117); BILIRUBIN,TOTAL 0.6 mg/dL (0.2-1.0); CREATININE 0.42 mg/dL (0.55-1.02)
[2018-04-11 08:07] VITALS: BP 101/72
[2018-04-11] MEDS: LACTOBACILLUS CHEW TABLET PO SCH ×3 (08:50→21:09)
[2018-04-11] MEDS: FERROUS GLUCONATE 324 MG TABLET PO SCH ×2 (08:50→16:09)
[2018-04-11] MEDS: GUAIFENESIN 200 MG TABLET PO SCH ×4 (08:50→21:09)
[2018-04-11] MEDS: DRONABINOL 2.5 MG CAPSULE PO SCH ×2 (08:50→21:09)
[2018-04-11] MEDS: CHOLESTYRAMINE LIGHT 4GM PACKET PO SCH ×2 (08:51→21:10)
[2018-04-11] MEDS: FAMOTIDINE 20 MG TABLET PO SCH (08:51)
[2018-04-11] MEDS: CALCIUM CARBONATE 500 MG TABLET PO SCH ×2 (08:51→21:10)
[2018-04-11] MEDS: CHOLECALCIFEROL 1,000 UNIT TABLET PO SCH (08:51)
[2018-04-11] MEDS: HEPARIN 5,000 UNITS/ML, 1ML SQ SCH ×2 (08:51→16:09)
[2018-04-11] MEDS: NEUTRA PHOS K 250 MG TABLET PO SCH ×3 (10:05→21:09)
[2018-04-11] MEDS: CEFTRIAXONE PMX 1GM/50ML 50 ML IV SCH (10:45)
[2018-04-11 13:22] VITALS: BP 124/82
[2018-04-11 18:45] VITALS: BP 111/79
[2018-04-11] MEDS: SIMVASTATIN 20 MG TABLET PO SCH (21:10)
[2018-04-11] MEDS: QUETIAPINE 200 MG TABLET PO SCH (21:10)
[2018-04-12] MEDS: HEPARIN 5,000 UNITS/ML, 1ML SQ SCH ×4 (00:02→23:48)
[2018-04-12 00:43] VITALS: BP 112/76
[2018-04-12] MEDS: GUAIFENESIN 200 MG TABLET PO SCH ×4 (05:29→21:01)
[2018-04-12 07:14] VITALS: BP 119/82
[2018-04-12] MEDS: FERROUS GLUCONATE 324 MG TABLET PO SCH ×2 (08:16→16:41)
[2018-04-12] MEDS: CALCIUM CARBONATE 500 MG TABLET PO SCH ×2 (08:16→21:01)
[2018-04-12] MEDS: LACTOBACILLUS CHEW TABLET PO SCH ×3 (08:16→21:00)
[2018-04-12] MEDS: FAMOTIDINE 20 MG TABLET PO SCH (08:16)
[2018-04-12] MEDS: CHOLESTYRAMINE LIGHT 4GM PACKET PO SCH ×2 (08:16→21:02)
[2018-04-12] MEDS: CHOLECALCIFEROL 1,000 UNIT TABLET PO SCH (08:16)
[2018-04-12] MEDS: DRONABINOL 2.5 MG CAPSULE PO SCH ×2 (08:16→21:01)
[2018-04-12] MEDS: CEFTRIAXONE PMX 1GM/50ML 50 ML IV SCH (11:28)
[2018-04-12 12:49] VITALS: BP 161/82
[2018-04-12 19:01] VITALS: BP 136/85
[2018-04-12] MEDS: NITROFURANTOIN (MACROBID) 100 MG CAPSULE PO SCH (21:00)
[2018-04-12] MEDS: QUETIAPINE 200 MG TABLET PO SCH (21:01)
[2018-04-12] MEDS: SIMVASTATIN 20 MG TABLET PO SCH (21:01)
[2018-04-13 01:10] VITALS: BP 124/78
[2018-04-13] MEDS: GUAIFENESIN 200 MG TABLET PO SCH ×4 (05:32→21:00)
[2018-04-13 06:42] VITALS: BP 144/84
[2018-04-13] MEDS: NITROFURANTOIN (MACROBID) 100 MG CAPSULE PO SCH (08:48)
[2018-04-13] MEDS: CHOLECALCIFEROL 1,000 UNIT TABLET PO SCH (08:48)
[2018-04-13] MEDS: FAMOTIDINE 20 MG TABLET PO SCH (08:48)
[2018-04-13] MEDS: LACTOBACILLUS CHEW TABLET PO SCH ×3 (08:48→21:14)
[2018-04-13] MEDS: DRONABINOL 2.5 MG CAPSULE PO SCH ×2 (08:48→21:14)
[2018-04-13] MEDS: FERROUS GLUCONATE 324 MG TABLET PO SCH ×2 (08:48→17:26)
[2018-04-13] MEDS: HEPARIN 5,000 UNITS/ML, 1ML SQ SCH ×2 (08:49→17:26)
[2018-04-13] MEDS: CALCIUM CARBONATE 500 MG TABLET PO SCH ×2 (08:49→21:14)
[2018-04-13] MEDS: LINEZOLID 600 MG TABLET PO SCH ×2 (11:22→21:00)
[2018-04-13] MEDS: CHOLESTYRAMINE LIGHT 4GM PACKET PO SCH ×2 (11:22→21:00)
[2018-04-13 13:04] VITALS: BP 148/99
[2018-04-13] MEDS: CEFTRIAXONE PMX 1GM/50ML 50 ML IV SCH (13:52)
[2018-04-13] MEDS ORDERED: LINE600T7 PO (15:33)
[2018-04-13] MEDS ORDERED: CEFD300C37 PO (15:33)
[2018-04-13] MEDS ORDERED: LISI5TAB7 PO (15:33)
[2018-04-13 19:02] VITALS: BP 135/88
[2018-04-13] MEDS: SIMVASTATIN 20 MG TABLET PO SCH (21:14)
[2018-04-13] MEDS: QUETIAPINE 200 MG TABLET PO SCH (21:14)
[2018-04-13 23:58] VITALS: BP 89/60
[2018-04-14 01:12] VITALS: BP 93/58
[2018-04-14] MEDS: GUAIFENESIN 200 MG TABLET PO SCH ×2 (05:59→11:26)
[2018-04-14 07:05] VITALS: BP 117/76
[2018-04-14] MEDS ORDERED: FUROSEMIDE 20 MG TABLET PO SCH (09:00)
[2018-04-14] MEDS ORDERED: LISINOPRIL 5 MG TABLET PO SCH (09:00)
[2018-04-14] MEDS: LACTOBACILLUS CHEW TABLET PO SCH (09:34)
[2018-04-14] MEDS: HEPARIN 5,000 UNITS/ML, 1ML SQ SCH ×2 (09:34)
[2018-04-14] MEDS: FERROUS GLUCONATE 324 MG TABLET PO SCH (09:35)
[2018-04-14] MEDS: FAMOTIDINE 20 MG TABLET PO SCH (09:35)
[2018-04-14] MEDS: LINEZOLID 600 MG TABLET PO SCH (09:35)
[2018-04-14] MEDS: CHOLESTYRAMINE LIGHT 4GM PACKET PO SCH (09:35)
[2018-04-14] MEDS: CALCIUM CARBONATE 500 MG TABLET PO SCH (09:35)
[2018-04-14] MEDS: CHOLECALCIFEROL 1,000 UNIT TABLET PO SCH (09:36)
[2018-04-14 09:46] LABS: BASOPHILS # (AUTO) 0.02 x10^3/uL (0-0.1); BASOPHILS % (AUTO) 0 % (0-1); EOSINOPHILS # (AUTO) 0.01 x10^3/uL (0-0.4); EOSINOPHILS % (AUTO) 0 % (1-7); LYMPHOCYTES % (AUTO) 37 % (22-44); MD NO; MEAN CORPUSCULAR HEMOGLOBIN 29.9 pg (27.0-34.8); MEAN CORPUSCULAR HGB CONC 33.3 g/dL (32.4-35.8); MEAN CORPUSCULAR VOLUME 89.6 fL (80-100); MEAN PLATELET VOLUME 9.1 fL (7.4-10.4); MONOCYTES % (AUTO) 8 % (2-9); NEUTROPHILS % (AUTO) 55 % (42-75); PLATELET COUNT 278 x10^3/uL (130-400); RED BLOOD COUNT 2.96 x10^6/uL (3.82-5.3); RED CELL DISTRIBUTION WIDTH 19.7 % (9.6-15.2)
[2018-04-14 09:59] LABS: ALBUMIN 1.4 g/dL (3.4-5.0); ANION GAP 4 mmol/L (5-15); CALCIUM 6.5 mg/dL (8.5-10.1); CHLORIDE 110 mmol/L (98-107)
[2018-04-14] MEDS: CEFTRIAXONE PMX 1GM/50ML 50 ML IV SCH (13:18)
[2018-04-14 14:52] VITALS: BP 131/88
[2018-04-14] MEDS ORDERED: QUETIAPINE 100MG TABLET PO SCH (21:00)
== END 2018-04-14 15:01 | DRG 314 ==
LOC: ED 13:18 → EDIP 13:19 → ED 13:25 → 4WST 16:29 → 3NW 04-11 17:30
PROVIDERS: ADMIT Internal Medicine; ATTEND Internal Medicine
PROC: 05HA33Z Insertion of Infusion Device into Left Brachial Vein, Percutaneous Approach (ICD-10-PCS; principal; 2018-04-08)
PROC: B54NZZA Ultrasonography of Left Upper Extremity Veins, Guidance (ICD-10-PCS; 2018-04-08)
DX: I95.9 Hypotension, unspecified (principal); E43 Unspecified severe protein-calorie malnutrition; C78.7 Secondary malignant neoplasm of liver and intrahepatic bile duct; D68.9 Coagulation defect, unspecified; E34.0 Carcinoid syndrome; I11.0 Hypertensive heart disease with heart failure; I50.22 Chronic systolic (congestive) heart failure; C7A.8 Other malignant neuroendocrine tumors; N39.0 Urinary tract infection, site not specified; J84.10 Pulmonary fibrosis, unspecified; B95.2 Enterococcus as the cause of diseases classified elsewhere; B96.1 Klebsiella pneumoniae [K. pneumoniae] as the cause of diseases classified elsewhere; E87.6 Hypokalemia; D64.9 Anemia, unspecified; E86.0 Dehydration; G89.29 Other chronic pain; K52.9 Noninfective gastroenteritis and colitis, unspecified; Z66 Do not resuscitate; Z79.899 Other long term (current) drug therapy; Z87.891 Personal history of nicotine dependence; Z90.710 Acquired absence of both cervix and uterus; Z98.1 Arthrodesis status; Z99.81 Dependence on supplemental oxygen; Z68.27 Body mass index [BMI] 27.0-27.9, adult
CPT/HCPCS: 36415; 36569; 70450; 71045; 80048; 80053; 81001; 82040; 82272; 82533; 82962; 83735; 84100; 84484; 85025; 85610; 85730; 86850; 86900; 87077; 87086; 87186; 87324; 93005; 99291; J0696; J1644; J2405; J3480; Q0167; J3475; J7040